=== PATIENT | female | born 1995 | race Caucasian/White ===

== ENCOUNTER 2016-05-06 11:15 | Emergency (ER) | payer MEDICAID ==
[~2016-05-06] VITALS: Ht 149.9 cm; Wt 86.2 kg
[2016-05-06 11:22] VITALS: BP 124/66; PULSE 88; RESP 16; TEMP 97.6; O2SAT 99
--- NOTE | 2016-05-06 11:29 | NUR ---
Patient to ER bed 5 to gown for evaluation. Side rails up. Report given to BREEZY BETANCUR.
--- NOTE | 2016-05-06 11:29 | NUR ---
pt present ED c/o productive cough,bodyache for five days.[id number],no distress
--- NOTE | 2016-05-06 11:40 | NUR ---
dr zabala at bedside
[2016-05-06 11:46] VITALS: BP 124/66; PULSE 88; RESP 16; TEMP 97.6; O2SAT 99
--- NOTE | 2016-05-06 11:48 | NUR ---
Patient given written and verbal discharge instructions and verbalizes understanding. ER MD discussed with patient the results and treatment provided. . Patient in stable condition. ID arm band removed. Rx of augmentin given. Patient educated on pain management and to follow up with PMD. Pain Scale [2/10]. Opportunity for questions provided and answered.
== END 2016-05-06 11:46 | disposition home or self-care (01) ==
LOC: SED 11:15
DX: J40 Bronchitis, not specified as acute or chronic (principal)
CPT/HCPCS: 99283